=== PATIENT | female | born 1930 | race Caucasian/White ===

== ENCOUNTER 2017-08-25 17:28 | Inpatient (IN) | payer MEDICARE, BC ==
[~2017-08-25] VITALS: Ht 167.6 cm; Wt 63.2 kg
[2017-08-25 18:01] LABS: BASOPHILS % (AUTO) 0.6 % (0-1); EOSINOPHILS # (AUTO) 0.1 X10'3 (0-0.9); EOSINOPHILS % (AUTO) 1.9 % (0-6); HEMOGLOBIN 13.5 g/dl (12.0-16.0); LYMPHOCYTES # (AUTO) 2.5 X10'3 (1.1-4.8); LYMPHOCYTES % (AUTO) 35.7 % (21-51); MEAN CORPUSCULAR HEMOGLOBIN 30.2 PG (27.0-31.0); MEAN CORPUSCULAR HGB CONC 34.7 % (33.0-36.5); MEAN CORPUSCULAR VOLUME 87.1 FL (78-98); MEAN PLATELET VOLUME 8.1 FL (7.4-10.4); MONOCYTES # (AUTO) 0.7 X10'3 (0-0.9); MONOCYTES % (AUTO) 10.2 % (2-12); NEUTROPHILS # (AUTO) 3.6 X10'3 (1.8-7.7); NEUTROPHILS % (AUTO) 51.6 % (42-75); PLATELET COUNT 244 X10'3 (140-440); RED BLOOD COUNT 4.48 X10'6 (4.20-5.60); RED CELL DISTRIBUTION WIDTH 13.9 % (11.5-14.5); WHITE BLOOD COUNT 6.9 X10'3 (4.5-11.0)
[2017-08-25 18:11] LABS: PARTIAL THROMBOPLASTIN TIME 26 SECONDS (22-32); PROTHROMBIN TIME 10.2 SECONDS (9.0-12.0)
[2017-08-25 18:20] LABS: ALANINE AMINOTRANSFERASE 29 U/L (12-78); ALBUMIN 3.5 G/DL (3.4-5.0); ALBUMIN/GLOBULIN RATIO 0.7 (1.1-1.5); ALKALINE PHOSPHATASE 92 IU/L (46-116); ANION GAP 8 (8-16); ASPARTATE AMINO TRANSFERASE 22 U/L (10-37); BILIRUBIN,TOTAL 0.3 MG/DL (0.1-1.0); BLOOD UREA NITROGEN 20 MG/DL (7-18); BUN/CREATININE RATIO 21.5 (6.6-38.0); CALCIUM 10.1 MG/DL (8.5-10.1); CHLORIDE 105 MMOL/L (99-107); CREATININE 0.93 MG/DL (0.40-0.90); GLUCOSE 121 MG/DL (70-104); SODIUM 141 MMOL/L (135-145); TOTAL CARBON DIOXIDE 27.8 MMOL/L (24-32); TOTAL PROTEIN 8.2 G/DL (6.4-8.2); TROPONIN I < 0.04 NG/ML (0.0-0.05); eGFR 57 ML/MIN
[2017-08-25] MEDS ORDERED: potassium Cl 20 mEq SR tablet PO PRN ×2 (19:55)
[2017-08-25] MEDS ORDERED: ondansetron/PF 4mg/2ml inj IV PRN (19:55)
[2017-08-25] MEDS ORDERED: magnesium hydroxide 30ml (MOM) UD suspension PO PRN (19:55)
[2017-08-25] MEDS ORDERED: acetaminophen 325mg tablet PO PRN (19:55)
[2017-08-25] MEDS ORDERED: potassium Cl 40MEQ/NS 500ml 500 ML IV PRN ×2 (19:55)
[2017-08-25] MEDS ORDERED: mag hydrox/Alum hydrox/simeth 30ml oral suspension PO PRN (19:55)
[2017-08-25] MEDS: normal saline 1000ml 1,000 ML IV SCH (20:06)
[2017-08-25 20:23] LABS: HEMOGLOBIN A1C 5.5 % (4.5-6.2)
[2017-08-26 06:30] LABS: BASOPHILS # (AUTO) 0.1 X10'3 (0-0.2); BASOPHILS % (AUTO) 0.9 % (0-1); EOSINOPHILS # (AUTO) 0.2 X10'3 (0-0.9); EOSINOPHILS % (AUTO) 2.8 % (0-6); HEMATOCRIT 33.5 % (35.0-45.0); HEMOGLOBIN 11.5 g/dl (12.0-16.0); LYMPHOCYTES # (AUTO) 1.7 X10'3 (1.1-4.8); LYMPHOCYTES % (AUTO) 28.1 % (21-51); MEAN CORPUSCULAR HEMOGLOBIN 30.2 PG (27.0-31.0); MEAN CORPUSCULAR HGB CONC 34.3 % (33.0-36.5); MEAN CORPUSCULAR VOLUME 87.9 FL (78-98); MEAN PLATELET VOLUME 8.2 FL (7.4-10.4); MONOCYTES # (AUTO) 0.7 X10'3 (0-0.9); MONOCYTES % (AUTO) 12.5 % (2-12); NEUTROPHILS # (AUTO) 3.3 X10'3 (1.8-7.7); NEUTROPHILS % (AUTO) 55.7 % (42-75); PLATELET COUNT 201 X10'3 (140-440); RED BLOOD COUNT 3.81 X10'6 (4.20-5.60); RED CELL DISTRIBUTION WIDTH 14.2 % (11.5-14.5); WHITE BLOOD COUNT 5.9 X10'3 (4.5-11.0)
[2017-08-26 06:47] LABS: ALBUMIN 2.7 G/DL (3.4-5.0); ANION GAP 9 (8-16); BLOOD UREA NITROGEN 18 MG/DL (7-18); BUN/CREATININE RATIO 26.1 (6.6-38.0); CALCIUM 8.8 MG/DL (8.5-10.1); CHLORIDE 110 MMOL/L (99-107); CHOL/HDL RATIO 3.3 (0.00-4.99); CHOLESTEROL 155 MG/DL (0-200); CREATININE 0.69 MG/DL (0.40-0.90); HDL CHOLESTEROL 47 MG/DL (35-60); LDL CHOLESTEROL 95 MG/DL (50-100); POTASSIUM 3.6 MMOL/L (3.5-5.1); SODIUM 144 MMOL/L (135-145); TOTAL CARBON DIOXIDE 24.6 MMOL/L (24-32); TRIGLYCERIDES 52 MG/DL (20-135); eGFR 81 ML/MIN
[2017-08-26 06:50] LABS: GLUCOSE 102 MG/DL (70-104)
[2017-08-26 08:00] VITALS: BP 179/63
[2017-08-26] MEDS: K and/or MAG REPLACEMENT MC SCH (08:00)
[2017-08-26] MEDS: aspirin 81mg tablet.DR PO SCH (09:24)
[2017-08-26] MEDS ORDERED: VALS160T29 PO (10:32)
[2017-08-26] MEDS ORDERED: AMLO5TAB PO (10:32)
[2017-08-26] MEDS ORDERED: LORazepam 2 mg/ml vial IM ONE (11:05)
[2017-08-26 11:59] VITALS: BP 173/72
[2017-08-26] MEDS: normal saline 1000ml 1,000 ML IV SCH (13:03)
[2017-08-26 15:59] VITALS: BP 168/68
[2017-08-26 19:30] VITALS: BP 175/64
[2017-08-26 23:30] VITALS: BP 149/58
[2017-08-27] MEDS: normal saline 1000ml 1,000 ML IV SCH ×2 (00:29→15:26)
[2017-08-27 03:30] VITALS: BP 143/70
[2017-08-27 06:00] VITALS: BP 154/77
[2017-08-27 06:21] LABS: BASOPHILS % (AUTO) 0.3 % (0-1); EOSINOPHILS # (AUTO) 0.3 X10'3 (0-0.9); EOSINOPHILS % (AUTO) 3.3 % (0-6); HEMOGLOBIN 12.5 g/dl (12.0-16.0); LYMPHOCYTES # (AUTO) 1.9 X10'3 (1.1-4.8); LYMPHOCYTES % (AUTO) 24.5 % (21-51); MEAN CORPUSCULAR HEMOGLOBIN 30.3 PG (27.0-31.0); MEAN CORPUSCULAR HGB CONC 34.7 % (33.0-36.5); MEAN CORPUSCULAR VOLUME 87.5 FL (78-98); MONOCYTES # (AUTO) 0.8 X10'3 (0-0.9); MONOCYTES % (AUTO) 10.3 % (2-12); NEUTROPHILS # (AUTO) 4.8 X10'3 (1.8-7.7); NEUTROPHILS % (AUTO) 61.6 % (42-75); PLATELET COUNT 209 X10'3 (140-440); RED BLOOD COUNT 4.11 X10'6 (4.20-5.60); WHITE BLOOD COUNT 7.7 X10'3 (4.5-11.0)
[2017-08-27 07:26] VITALS: BP 142/83
[2017-08-27 07:53] LABS: ALBUMIN 2.8 G/DL (3.4-5.0); ANION GAP 10 (8-16); BLOOD UREA NITROGEN 20 MG/DL (7-18); BUN/CREATININE RATIO 23.5 (6.6-38.0); CALCIUM 9.4 MG/DL (8.5-10.1); CHLORIDE 108 MMOL/L (99-107); CREATININE 0.85 MG/DL (0.40-0.90); GLUCOSE 101 MG/DL (70-104); POTASSIUM 3.8 MMOL/L (3.5-5.1); SODIUM 142 MMOL/L (135-145); TOTAL CARBON DIOXIDE 24.5 MMOL/L (24-32); eGFR 64 ML/MIN
[2017-08-27] MEDS: K and/or MAG REPLACEMENT MC SCH (08:00)
[2017-08-27] MEDS ORDERED: atorvastatin 10mg tablet PO ONE (08:45)
[2017-08-27] MEDS: aspirin 81mg tablet.DR PO SCH (08:46)
[2017-08-27 10:00] VITALS: BP 175/72
[2017-08-27] MEDS ORDERED: amLODIPine 5mg tablet PO ONE (10:45)
[2017-08-27 17:00] VITALS: BP 182/86
[2017-08-27 21:00] VITALS: BP 170/73
[2017-08-28 01:00] VITALS: BP 177/71
[2017-08-28 05:00] VITALS: BP 155/63
[2017-08-28 06:00] LABS: BASOPHILS % (AUTO) 0.3 % (0-1); EOSINOPHILS # (AUTO) 0.2 X10'3 (0-0.9); EOSINOPHILS % (AUTO) 2.6 % (0-6); HEMATOCRIT 34.8 % (35.0-45.0); HEMOGLOBIN 12.4 g/dl (12.0-16.0); LYMPHOCYTES # (AUTO) 1.6 X10'3 (1.1-4.8); LYMPHOCYTES % (AUTO) 19.7 % (21-51); MEAN CORPUSCULAR HEMOGLOBIN 30.6 PG (27.0-31.0); MEAN CORPUSCULAR HGB CONC 35.6 % (33.0-36.5); MEAN CORPUSCULAR VOLUME 85.8 FL (78-98); MEAN PLATELET VOLUME 7.9 FL (7.4-10.4); MONOCYTES # (AUTO) 0.8 X10'3 (0-0.9); NEUTROPHILS # (AUTO) 5.5 X10'3 (1.8-7.7); NEUTROPHILS % (AUTO) 67.4 % (42-75); PLATELET COUNT 215 X10'3 (140-440); RED BLOOD COUNT 4.05 X10'6 (4.20-5.60); WHITE BLOOD COUNT 8.1 X10'3 (4.5-11.0)
[2017-08-28 06:20] LABS: ALBUMIN 2.7 G/DL (3.4-5.0); ANION GAP 9 (8-16); BLOOD UREA NITROGEN 16 MG/DL (7-18); BUN/CREATININE RATIO 21.1 (6.6-38.0); CALCIUM 9.1 MG/DL (8.5-10.1); CHLORIDE 107 MMOL/L (99-107); CREATININE 0.76 MG/DL (0.40-0.90); GLUCOSE 108 MG/DL (70-104); SODIUM 141 MMOL/L (135-145); TOTAL CARBON DIOXIDE 25.4 MMOL/L (24-32); eGFR 72 ML/MIN
[2017-08-28] MEDS: normal saline 1000ml 1,000 ML IV SCH (07:59)
[2017-08-28] MEDS: K and/or MAG REPLACEMENT MC SCH (08:00)
[2017-08-28] MEDS ORDERED: amLODIPine 5mg tablet PO SCH (08:00)
[2017-08-28] MEDS ORDERED: atorvastatin 10mg tablet PO SCH (08:00)
[2017-08-28] MEDS: aspirin 81mg tablet.DR PO SCH (08:37)
[2017-08-28 10:00] VITALS: BP 136/75
[2017-08-28 14:00] VITALS: BP 175/81
[2017-08-28] MEDS ORDERED: ATOR10TA PO (15:00)
== END 2017-08-28 15:54 | DRG 65 ==
LOC: ER 17:29 → ED HOLD 19:53 → EDBEDREQ 08-26 07:05 → ORTHO 4S 08-26 08:05
PROVIDERS: ADMIT Family Medicine; ATTEND Family Medicine
DX: I63.9 Cerebral infarction, unspecified (principal); G81.90 Hemiplegia, unspecified affecting unspecified side; N18.3 Chronic kidney disease, stage 3 (moderate); R29.810 Facial weakness; I12.9 Hypertensive chronic kidney disease with stage 1 through stage 4 chronic kidney disease, or unspecified chronic kidney disease; Z88.5 Allergy status to narcotic agent; Z85.820 Personal history of malignant melanoma of skin; Z82.3 Family history of stroke; Z82.5 Family history of asthma and other chronic lower respiratory diseases; Z84.89 Family history of other specified conditions
CPT/HCPCS: 36415; 70450; 70544; 70551; 71045; 80048; 80053; 80061; 82948; 83036; 84484; 85025; 85610; 85730; 87070; 92507; 92616; 93005; 93306; 93880; 97110; 97116; 97161; 99285; J2060; J7030